=== PATIENT | male | born 1960 | race Native Hawaiian/Other Pacific Islander ===

== ENCOUNTER 2021-04-26 16:56 | Emergency (ER) | payer OTHER ==
[~2021-04-26] VITALS: Ht 167.6 cm; Wt 108.9 kg
[2021-04-26 16:56] VITALS: TEMP 98.8
[2021-04-26 17:37] LABS: PLATELET COUNT 232 K/uL (142-355)
[2021-04-26 17:48] LABS: POTASSIUM 3.7 mmol/L (3.6-5.2); SODIUM 140 mmol/L (136-145)
[2021-04-26 17:49] LABS: PARTIAL THROMBOPLASTIN TIME 23.6 SECONDS (24.5-33.6)
[2021-04-26 18:50] VITALS: BP 158/62
== END 2021-04-26 18:50 | disposition home or self-care (01) ==
LOC: ED 17:06
PROVIDERS: Hospitalist
DX: G25.0 Essential tremor (principal); G25.81 Restless legs syndrome
CPT/HCPCS: 80053; 80320; 82550; 83880; 84484; 85027; 85610; 85730; 93005; 99283